=== PATIENT | male | born 1980 | race Caucasian/White ===

== ENCOUNTER 2023-03-02 19:20 | Emergency (ER) | payer BC ==
[2023-03-02 20:33] LABS: ESTIMATED GFR 113 mL/min (>60); TROPONIN I HIGH SENSITIVITY 5.5 pg/mL (<=60.3)
== END 2023-03-02 20:54 | disposition home or self-care (01) ==
LOC: JP.ED 19:20
DX: M25.512 Pain in left shoulder (principal); E78.00 Pure hypercholesterolemia, unspecified; I10 Essential (primary) hypertension; Z79.82 Long term (current) use of aspirin; Z79.899 Other long term (current) drug therapy
CPT/HCPCS: 36415; 80053; 84484; 85025; 99283